=== PATIENT | male | born 2000 | race Caucasian/White ===

== ENCOUNTER 2022-03-21 14:31 | Emergency (ER) | payer OTHER ==
[2022-03-21] MEDS ORDERED: Lidocaine 1% (PF) 30 ML VIAL ONE (15:22)
== END 2022-03-21 16:13 ==
LOC: NAV ERS 14:31
DX: S01.81XA Laceration without foreign body of other part of head, initial encounter (principal); S10.93XA Contusion of unspecified part of neck, initial encounter; Y04.0XXA Assault by unarmed brawl or fight, initial encounter
CPT/HCPCS: 12011; 70450; 70486; J2001